=== PATIENT | male | born 1975 | race Caucasian/White ===

== ENCOUNTER → 2017-08-04 | Outpatient (CLI) | payer BC, OTHER ==
--- NOTE | 2017-08-04 17:30 | Diagnostic Imaging Report ---
INDICATION: Left epididymitis. FINDINGS: The right testicle measures 3.8 x 2.2 x 3.5 cm, and the left testicle measures 3.2 x 2.0 x 2.9 cm. Both testes demonstrate a homogeneous echotexture. No discrete testicular mass is identified. There is normal blood flow bilaterally. There is increased vascularity to bilateral epididymides, perhaps owing to epididymitis. No hydrocele is seen. IMPRESSION: 1. No evidence of testicular mass or vascular compromise. 2. Increased vascularity to the epididymides bilaterally, perhaps owing to epididymitis. Dictated by: Dictated on workstation # [id number]
== END ==
LOC: RAD 16:56
PROVIDERS: ATTEND Urology
DX: N45.1 Epididymitis (principal)
CPT/HCPCS: 76870

== ENCOUNTER → 2017-10-16 | Outpatient (CLI) | payer BC ==
--- NOTE | 2017-10-16 12:35 | Diagnostic Imaging Report ---
PROCEDURE: US Renal Bilateral. TECHNIQUE: Multiple real-time grayscale images were obtained over the kidneys in various projections bilaterally. INDICATION: Varicocele. The right kidney measures 11.7 x 4.8 x 5.4 cm and the left kidney measures 10.3 x 4.9 x 5.0 cm. The cortical thickness and echogenicity is normal. No calculi are seen. There is no hydronephrosis. No mass is identified. IMPRESSION: Unremarkable renal ultrasound. Dictated by: Dictated on workstation # [id number]
--- NOTE | 2017-10-16 12:48 | Diagnostic Imaging Report ---
INDICATION: Varicocele and epididymides. TECHNIQUE: Multiple real-time grayscale images were obtained over the scrotum in various projections bilaterally. Right testicle measures 4.3 x 2.2 x 2.9 cm and the left testicle measures 3.3 x 2.0 x 3.6 cm. Both testes demonstrate homogeneous echotexture. No discrete testicular mass is seen. There is blood flow to both testes. Left epididymis does appear to be hypervascular and enlarged suggestive of epididymitis. Right epididymis is unremarkable. There are small bilateral hydroceles. No varicocele is detected. IMPRESSION: 1. No evidence of testicular mass or vascular compromise. 2. Findings consistent with left epididymitis. 2. Small bilateral hydroceles. 3. No evidence of varicocele. Dictated by: Dictated on workstation # [id number]
== END ==
LOC: RAD 11:46
PROVIDERS: ATTEND Urology
DX: N43.3 Hydrocele, unspecified (principal); I86.1 Scrotal varices; N45.1 Epididymitis
CPT/HCPCS: 76770; 76870

== ENCOUNTER 2019-04-28 05:37 | Emergency (ER) | payer BC ==
[~2019-04-28] VITALS: Ht 182.9 cm; Wt 72.7 kg
[2019-04-28 06:31] LABS: BASOPHILS # (AUTO) 0.1 10^3/uL (0.0-0.1); BASOPHILS % (AUTO) 1 % (0-10); EOSINOPHILS # (AUTO) 0.3 10^3/uL (0.0-0.3); EOSINOPHILS % (AUTO) 7 % (0-10); HEMATOCRIT 45 % (40-54); HEMOGLOBIN 15.8 G/DL (13.3-17.7); LYMPHOCYTES # (AUTO) 1.4 X 10^3 (1.0-4.0); LYMPHOCYTES % (AUTO) 31 % (12-44); MEAN CORPUSCULAR HEMOGLOBIN 30 PG (25-34); MEAN CORPUSCULAR HGB CONC 35 G/DL (32-36); MEAN CORPUSCULAR VOLUME 84 FL (80-99); MEAN PLATELET VOLUME 10.2 FL (7.4-10.4); MONOCYTES # (AUTO) 0.3 X 10^3 (0.0-1.0); MONOCYTES % (AUTO) 7 % (0-12); NEUTROPHILS # (AUTO) 2.5 X 10^3 (1.8-7.8); NEUTROPHILS % (AUTO) 54 % (42-75); PLATELET COUNT 206 10^3/uL (130-400); WHITE BLOOD COUNT 4.6 10^3/uL (4.3-11.0)
--- NOTE | 2019-04-28 06:31 | ED GI ---
General Chief Complaint: Abdominal/GI Problems Stated Complaint: ABD PAIN,DIARRHEA,NAUSEA Nursing Triage Note: Pt amb to room #5 with c/o diffuse abd discomfort and diarrhea. Pt reports 04/21/19 he began to experience upper Rt sided abd discomfort and diarrhea. Pt reports to have seen [facility] Urgent care where he is schedule for an out patient ultrasound on 04/29/18. Pt reports upon rise this morning, abd discomfort became diffuse after episode of diarrhea. Pt denies fever, nausea, or vomiting. Sepsis Screen: No Definite Risk Source of Information: Patient Exam Limitations: No Limitations History of Present Illness Date Seen by Provider: Apr 28, 2019 Time Seen by Provider: 06:26 Initial Comments This 44-year-old male presents with a complaint of abdominal pain. The patient has had intermittent right upper quadrant pain which she is scheduled to have an ultrasound tomorrow of his gallbladder. The patient relates that he ate causes the right upper quadrant pain. The patient is here because he is concerned that the right upper quadrant pain has moved to the left upper quadrant. The patient further notes that he has had a joyce-colored stool once in the last week. The patient denies fever, chills, headache, stiff neck, or photophobia. Patient has had no persistent fever. Patient has had diarrhea without blood. He denies nausea or vomiting. Patient's past medical history, family history, and social history were unrema rkable. Allergies and Home Medications Allergies Coded Allergies: No Known Drug Allergies (Unverified , 01/22/10) Patient Home Medication List Home Medication List Reviewed: Yes Review of Systems Review of Systems Constitutional: No chills EENTM: No Symptoms Reported Respiratory: No Symptoms Reported; Denies Cough Cardiovascular: Denies Chest Pain Gastrointestinal: See HPI, Abdominal Pain (right upper quadrant), Diarrhea; Denies Nausea, Denies Vomiting Genitourinary: No Symptoms Reported Musculoskeletal: no symptoms reported Skin: no symptoms reported Psychiatric/Neurological: No Symptoms Reported Endocrine: No Symptoms Reported Hematologic/Lymphatic: No Symptoms Reported Past Evnldif-Jkdngf-Lqazpn Hx Past Med/Social Hx: Reviewed Nursing Past Med/Soc Hx Patient Social History Alcohol Use: Rarely Uses Number of Drinks Today: 0 Recreational Drug Use: Yes Drug of Choice: thc Smoking Status: Never a Smoker 2nd Hand Smoke Exposure: No Recent Foreign Travel: No Contact w/Someone Who Travel: No Recent Infectious Disease Expo: No Recent Hopitalizations: No Seasonal Allergies Seasonal Allergies: No Past Medical History Surgeries: Yes Tonsillectomy Respiratory: No Cardiac: No Neurological: No Genitourinary: No Gastrointestinal: No Musculoskeletal: No Endocrine: No HEENT: No Cancer: No Psychosocial: No Integumentary: No Blood Disorders: No Physical Exam Vital Signs Vital Signs - First Documented 04/28/19 05:57 Temp 36.1 Pulse 81 Resp 16 B/P (MAP) 134/90 (105) Pulse Ox 100 O2 Delivery Room Air Capillary Refill : Less Than 3 Seconds Height/Weight/BMI Height: '" Weight: lbs. oz. kg; 21.00 BMI Method:Stated General Appearance: WD/WN, no apparent distress Neck: non-tender, full range of motion, supple Respiratory: lungs clear Cardiovascular: regular rate, rhythm Gastrointestinal: normal bowel sounds, non tender, soft Extremities: normal range of motion, non-tender, normal inspection Back: normal inspection Neurologic/Psychiatric: no motor/sensory deficits, alert, normal mood/affect Skin: normal color, warm/dry Progress/Results/Core Measures Results/Orders Lab Results Laboratory Tests Test 04/28/19 06:03 Range/Units White Blood Count 4.6 4.3-11.0 10^3/uL Red Blood Count 5.30 4.35-5.85 10^6/uL Hemoglobin 15.8 13.3-17.7 G/DL Hematocrit 45 40-54 % Mean Corpuscular Volume 84 80-99 FL Mean Corpuscular Hemoglobin 30 25-34 PG Mean Corpuscular Hemoglobin Concent 35 32-36 G/DL Red Cell Distribution Width 12.0 10.0-14.5 % Platelet Count 206 130-400 10^3/uL Mean Platelet Volume 10.2 7.4-10.4 FL Neutrophils (%) (Auto) 54 42-75 % Lymphocytes (%) (Auto) 31 12-44 % Monocytes (%) (Auto) 7 0-12 % Eosinophils (%) (Auto) 7 0-10 % Basophils (%) (Auto) 1 0-10 % Neutrophils # (Auto) 2.5 1.8-7.8 X 10^3 Lymphocytes # (Auto) 1.4 1.0-4.0 X 10^3 Monocytes # (Auto) 0.3 0.0-1.0 X 10^3 Eosinophils # (Auto) 0.3 0.0-0.3 10^3/uL Basophils # (Auto) 0.1 0.0-0.1 10^3/uL Sodium Level 137 135-145 MMOL/L Potassium Level 3.8 3.6-5.0 MMOL/L Chloride Level 100 98-107 MMOL/L Carbon Dioxide Level 18 L 21-32 MMOL/L Anion Gap 19 H 5-14 MMOL/L Blood Urea Nitrogen 10 7-18 MG/DL Creatinine 0.99 0.60-1.30 MG/DL Estimat Glomerular Filtration Rate > 60 BUN/Creatinine Ratio 10 Glucose Level 69 L 70-105 MG/DL Calcium Level 9.5 8.5-10.1 MG/DL Corrected Calcium 9.1 8.5-10.1 MG/DL Total Bilirubin 1.9 H 0.1-1.0 MG/DL Aspartate Amino Transf (AST/SGOT) 21 5-34 U/L Alanine Aminotransferase (ALT/SGPT) 18 0-55 U/L Alkaline Phosphatase 86 40-136 U/L Total Protein 6.7 6.4-8.2 GM/DL Albumin 4.5 3.2-4.5 GM/DL Lipase 15 8-78 U/L My Orders Orders - ELADIA DAVIAL MD Cbc With Automated Diff (04/28/19 06:23) Comprehensive Metabolic Panel (04/28/19 06:23) Lipase (04/28/19 06:23) Ua Culture If Indicated (04/28/19 06:23) Ns Iv 1000 Ml (Sodium Chloride 0.9%) (04/28/19 06:30) Us Gallbladder [id number] (04/28/19 06:23) Vital Signs/I&O 04/28/19 05:57 Temp 36.1 Pulse 81 Resp 16 B/P (MAP) 134/90 (105) Pulse Ox 100 O2 Delivery Room Air Blood Pressure Mean: 105 Progress Progress Note : Time: 08:10 Progress Note The patient's laboratory evaluation ultrasound was unremarkable. I discussed findings with patient and offered reassurance. I recommended follow-up with his caregiver choice. Consideration can be given to referral for gastroenterology. Departure Impression Primary Impression: Abdominal pain Qualified Codes: R10.31 - Right lower quadrant pain Disposition: 01 HOME, SELF-CARE Condition: Unchanged Departure-Patient Inst. Decision time for Depature: 08:12 Referrals: [facility],LOCAL PHYSICIAN (PCP) Primary Care Physician Patient Instructions: Acute Abdomen (Belly Pain), Adult (DC) Add. Discharge Instructions: Close follow-up with critical access hospital. Return if any problems or questions. Discharge instructions reviewed with patient and/or family. Voiced understanding. Scripts No Active Prescriptions or Reported Meds ELADIA DAVILA MD Apr 28, 2019 06:31
[2019-04-28] MEDS: NS IV 1000 ML 1,000 ML IV SCH ×2 (06:35→07:16)
[2019-04-28 06:36] LABS: CHLORIDE 100 MMOL/L (98-107); POTASSIUM 3.8 MMOL/L (3.6-5.0); SODIUM 137 MMOL/L (135-145)
[2019-04-28 06:52] LABS: ALANINE AMINOTRANSFERASE 18 U/L (0-55); ALBUMIN 4.5 GM/DL (3.2-4.5); ALKALINE PHOSPHATASE 86 U/L (40-136); BILIRUBIN,TOTAL 1.9 MG/DL (0.1-1.0); BUN/CREATININE RATIO 10; CALCIUM 9.5 MG/DL (8.5-10.1); CARBON DIOXIDE 18 MMOL/L (21-32); CREATININE SERUM 0.99 MG/DL (0.60-1.30); GFR ESTIMATED > 60; GLUCOSE 69 MG/DL (70-105); LIPASE 15 U/L (8-78); TOTAL PROTEIN 6.7 GM/DL (6.4-8.2)
--- NOTE | 2019-04-28 07:19 | NUR ---
SONO TO BEDSIDE.
--- NOTE | 2019-04-28 08:07 | Diagnostic Imaging Report ---
PROCEDURE: US Gallbladder. TECHNIQUE: Multiple real-time grayscale images were obtained over the right upper quadrant in various projections. INDICATION: Right upper quadrant abdominal pain. COMPARISON: None available. FINDINGS: Liver: Normal in size and echotexture. No focal lesion is seen. Appropriate hepatopetal flow is demonstrated in the main portal vein. Gallbladder: Normal. No stones or gallbladder wall thickening. No pericholecystic fluid. Negative sonographic Alvarez's sign. Biliary Tree: No intrahepatic or extrahepatic bile duct dilation is identified. The proximal common duct measures 0.4 cm in diameter. Pancreas: No abnormality in the visualized portions of the pancreas. Right kidney: Normal parenchymal echotexture and thickness. No hydronephrosis, stone or mass. Other: The visualized aorta and IVC are normal. There is no abdominal free fluid. IMPRESSION: Normal right upper quadrant abdominal ultrasound. Dictated by: Dictated on workstation # [id number]
[2019-04-28 08:37] VITALS: BP 110/71
== END 2019-04-28 08:37 | disposition home or self-care (01) ==
LOC: EDUNIT# 05:37 → ER 05:40
DX: R10.11 Right upper quadrant pain (principal); Z90.89 Acquired absence of other organs
CPT/HCPCS: 36415; 76705; 80053; 83690; 85025; 96360; 96361

== ENCOUNTER → 2019-06-10 | Outpatient (CLI) | payer BC ==
[~2019-06-10] MED LIST: CATHETER FLUSH 10 ML SYR IV PRN
--- NOTE | 2019-06-10 15:30 | Diagnostic Imaging Report ---
HEPATOBILIARY SCAN DATE: June 10, 2019. INDICATION: 44-year-old male, right upper quadrant abdominal pain. COMPARISON: Right upper quadrant ultrasound April 28, 2019. PROCEDURE: 5.3 mCi of Tc-99m Choletech was administered intravenously and serial anterior planar images over the liver and upper abdomen were obtained. FINDINGS: There is homogenous activity throughout the liver with good clearance of background activity. This indicates good hepatocellular function. Biliary tree activity is seen at 10 minutes. The gallbladder is seen at 10 minutes. There is enterogastric reflux. The biliary tree is patent. There is no evidence of acute cholecystitis. Ensure was administered. Gallbladder ejection fraction was calculated to be 23%. IMPRESSION: 1. No evidence of acute cholecystitis. 2. Gallbladder ejection fraction is measured at 23% which is below lower limits of normal. This can be seen with biliary dyskinesia and/or chronic cholecystitis. 3. There is enterogastric reflux. Dictated by: Dictated on workstation # [id number]
== END ==
LOC: CARD 11:44
PROVIDERS: ATTEND Physician Assistant
DX: K21.9 Gastro-esophageal reflux disease without esophagitis (principal)
CPT/HCPCS: 78227